=== PATIENT | male | born 1980 | race Caucasian/White ===

== ENCOUNTER 2025-05-14 09:48 | Emergency (ER) | payer BC, SELFPAY ==
[2025-05-14 10:00] VITALS: BP 140/100; PULSE 75; RESP 16; TEMP 36.7; O2SAT 99
--- NOTE | 2025-05-14 10:54 | ED_ITS ---
HPI - General Adult General Chief complaint: Upper Respiratory Infection Stated complaint: Strep Symptoms Time Seen by Provider: 05/14/25 10:54 Source: patient Mode of arrival: ambulatory Limitations: no limitations History of Present Illness HPI narrative: 44-year-old male patient presents to [facility] with complaints of a sore throat that started yesterday. Patient also complaining of body aches, chills unknown if he has had a fever. Patient states a slight cough but no chest pain or shortness of breath. Denies any ear pain. Denies any abdominal pain nausea vomiting or diarrhea. Patient states he has just been taking some [id number] DayQuil NyQuil for his symptoms. Related Data Home Medications ?Medication ?Instructions ?Recorded ?Confirmed ?Last Taken ?Type No Home Medications 05/14/25 05/14/25 U nknown History Allergies Allergy/AdvReac Type Severity Reaction Status Date / Time No Known Allergies Allergy Verified 05/14/25 10:04 Review of Systems Review of Systems: CONSTITUTIONAL: Positive fever, body aches and chills, or sweats. EYES: Denies visual changes, redness, or discharge. ENT: positive rhinorrhea, congestion, sore throat, denies otalgia. CARDIOVASCULAR: Denies chest pain, palpitations, or edema. RESPIRATORY: positive cough denies dyspnea. GASTROINTESTINAL: Denies abdominal pain, nausea, vomiting, or diarrhea. GENITOURINARY: Denies dysuria or hematuria. SKIN: Denies rash or itching. MUSCULOSKELETAL: Denies back pain, joint pain, or myalgia. NEUROLOGIC: Denies headache, numbness, or weakness. PSYCHIATRIC: Denies anxiety or depression. [facility] Past Medical History Medical History (Updated 05/14/25 @ 11:14 by Jenna Robles, RUBI) No pertinent past medical history Comments At the time of my signature I agree with nursing past medical history, surgical, social, and family history. There is no relevant family history pertinent to the presenting complaint. Exam Narrative: GENERAL: Well-appearing, well-nourished, and in no acute distress. HEAD: Normocephalic, atraumatic. EYES: PERRLA and EOMI. ENT: Nares with erythema edema noted bilaterally, no rhinorrhea or epistaxis. Mucous membranes moist. posterior pharynx no erythema, tonsillar enlargement, exudates or lesions present. There is little slight injection noted to the left TM with little bit of fluid behind it but the right TM appears normal. No foreign bodies the canals. NECK: Supple. No lymphadenopathy CHEST: Clear to auscultation. No respiratory distress. HEART: Regular rate and rhythm. No murmur heard. Normal peripheral pulses. ABDOMEN: Soft, nontender, nondistended, normal active bowel sounds. EXTREMITIES: Normal range of motion. No edema. SKIN: Warm, dry, no rash. NEURO: No focal deficits. Alert and oriented x3. Course Course Level of Care: Express Care Visit Reevaluation(s) Reevaluation #1: re-evaluated patient notified him that the point of care testing today is all negative. We will send the throat swab to the lab for a culture and if the culture comes back positive we will call him any antibiotics at that time. Discussed with patient continues taking [id number] cold and flu medication for symptoms may also use warm salt water gargles hot tea and honey to help soothe the sore throat pain. Patient verbalized understanding denies any other questions or concerns at this time. Date: 05/14/25 Time: 11:15 Vital Signs Vital signs: Vital Signs Temperature 36.7 C 05/14/25 10:00 Pulse Rate 75 05/14/25 10:00 Respiratory Rate 16 05/14/25 10:00 Blood Pressure 140/100 H 05/14/25 10:00 Pulse Oximetry 99 05/14/25 10:00 Oxygen Delivery Room Air 05/14/25 10:00 Temperature 36.7 C 05/14/25 10:00 Pulse Rate 75 05/14/25 10:00 Respiratory Rate 16 05/14/25 10:00 Blood Pressure 140/100 H 05/14/25 10:00 Pulse Oximetry 99 05/14/25 10:00 Oxygen Delivery Room Air 05/14/25 10:00 Vital signs reviewed. The patient has been informed that they may have pre-hypertension or Hypertension based on a BP reading in the department. I recommend that the patient call the primary care provider listed on their discharge instructions or a physician of their choice this week to arrange follow up for further evaluation of possible pre-hypertension or Hypertension Medical Decision Making MDM Narrative Medical decision making narrative: Plan care for patient is to test him today for COVID, influenza and strep. I will reassess him once this has resulted in Differential Diagnosis Differential Diagnosis: Differential diagnosis: Viral pharyngitis, pharyngitis, group A strep, infectious mononucleosis, gonococcal pharyngitis, exudative pharyngitis, oral candidiasis. Chronic allergies, postnasal drip, GERD, abscess formation, but glottitis, retropharyngeal abscess formation, or airway obstruction. Vital Signs Vital Signs: Vital Signs Temperature 36.7 C 05/14/25 10:00 Pulse Rate 75 05/14/25 10:00 Respiratory Rate 16 05/14/25 10:00 Blood Pressure 140/100 H 05/14/25 10:00 Pulse Oximetry 99 05/14/25 10:00 Oxygen Delivery Room Air 05/14/25 10:00 Temperature 36.7 C 05/14/25 10:00 Pulse Rate 75 05/14/25 10:00 Respiratory Rate 16 05/14/25 10:00 Blood Pressure 140/100 H 05/14/25 10:00 Pulse Oximetry 99 05/14/25 10:00 Oxygen Delivery Room Air 05/14/25 10:00 Lab Data Labs: Lab Results 05/14/25 Range/Units 11:05 POC Grp A Strep Screen Negative (Negative) Critical Care Time Critical Care Time Critical Care Time: No Discharge Plan Discharge Clinical Impression: Viral URI, Pharyngitis Patient Disposition: Home Condition: Stable Instructions: Antibiotic Form, Viral Syndrome (ED) Additional Instructions: Viral illness may last between 7-12days; antibiotic is NOT recommended at this time. Recommend antihistamine such as Benadryl at night time and Claritin/Zyrtec/Sarah during the day Cough syrup may cause drowsiness; avoid driving or take it at night time. Also, recommend symptomatic treatment includes: rest, fluids, and increase humidity of the air at home. Recommend Acetaminophen or nonsteroidal anti-inflammatory agents (NSAIDs) as directed in the bottle to reduce fever and/pain/headache. Avoid smoking/second-hand smoke. Limit visits to areas with large crowds. Please schedule a follow-up visit with your personal physician for further evaluation and treatment within 3-5days. Including recheck and discussion of your blood pressure. If your symptoms persist, change or worsen significantly before you can contact your personal physician then please, without delay, go to the emergency department for further evaluation. Patient Language: Austrian Prescriptions: No Action No Home Medications Follow-up/Referrals: PHYSICIAN,RED CROSS EXECUTIVE DIRECTOR [Primary Care Provider, Internal Medicine] Stand Alone Forms: Work/School Release IP Time of Disposition: 11:13
[2025-05-14 11:07] LABS: EDSTREPNEGPOS1 Negative (Negative)
[2025-05-14 11:13] LABS: EDCOVIDSCREEN Negative (Negative); EDINFLUASCREEN Negative (Negative); EDINFLUBSCREEN Negative (Negative)
== END 2025-05-14 11:17 | disposition home or self-care (01) ==
PROVIDERS: Emergency Provider Nurse Practitioner Family
DX: J06.9 Acute upper respiratory infection, unspecified (principal); J02.9 Acute pharyngitis, unspecified; Z20.822 Contact with and (suspected) exposure to COVID-19
CPT/HCPCS: 87081; 87426; 87804; 87880; 99203; G0463